=== PATIENT | male | born 1990 | race Caucasian/White ===

== ENCOUNTER 2018-05-28 23:01 | Emergency (ER) | payer SELFPAY ==
[2018-05-28] MEDS ORDERED: THIAMINE 200 MG/2 ML IV ONE (23:14)
[2018-05-28] MEDS ORDERED: Sodium Chloride 0.9% 1000 ML 1,000 ML IV SCH (23:15)
[2018-05-28] MEDS ORDERED: THIAMINE 200 MG/2 ML ONE (23:18)
[2018-05-28] MEDS ORDERED: Sodium Chloride 0.9% 1000 ML 1,000 ML ONE (23:18)
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
[2018-05-28 23:26] LABS: BASOPHIL % 0.2 % (0.0-0.4); Basophil (Absolute #) 0.02 (0-0.4); Eosinophil % 1.4 % (0.00-5.0); Eosinophil (Absolute #) 0.15 (0-0.5); Granulocyte Absolute (ANC) 6.87 (1.4-6.9); Granulocytes % 62.6 % (36.0-66.0); Hemoglobin 13.8 gm/dl (12.5-18.0); Mean Corpuscular Hemoglobin 31.7 pg (26-32); Mean Corpuscular Hgb Concent. 34.5 g/dl (32-36); Mean Platelet Volume 9.8 fl (6-9.5); Monocyte (Absolute #) 0.53 (0.0-1.3); Monocytes % 4.8 % (0.0-12.0); Platelet Count 318 K/mm3 (150-450); Red Blood Count 4.35 M/mm3 (4.1-5.6); Red Cell Distribution Width 12.2 % (11.5-14.0)
[2018-05-28 23:57] LABS: ALBUMIN 4.2 g/dL (3.5-5.0); ALKALINE PHOSPHATASE 79 U/L (38-126); AMYLASE 57 U/L (30-110); ANION GAP 14.8 MEQ/L (5-15); BLOOD UREA NITROGEN 11 mg/dL (9-20); CHLORIDE 104 mmol/L (98-107); Calcium 7.9 mg/dL (8.4-10.2); Carbon Dioxide 28 mmol/L (22-30); Creatinine 1 0.92 mg/dL (0.66-1.25); ETHYL ALCOHOL 278 mg/dL (0-10); Glucose 115 mg/dL (74-106); LIPASE 27 U/L (23-300); Potassium 3.2 mmol/L (3.5-5.1); SGOT/AST 38 U/L (17-59); SGPT/ALT 17 U/L (0-50); SODIUM 143 mmol/L (137-145); Total Protein 6.9 g/dL (6.3-8.2)
[2018-05-29 00:01] LABS: ACETAMINOPHEN < 10 ug/ml (10-30); SALICYLATE < 1.0 mg/dL (2-20)
[2018-05-29 01:42] LABS: Appearance CLEAR (CLEAR); Bilirubin NEGATIVE (NEGATIVE); Blood SMALL Ery/ul (0-5); Glucose NEGATIVE (NEGATIVE); Ketones NEGATIVE (NEGATIVE); Leukocyte Esterase NEGATIVE (NEGATIVE); Nitrite NEGATIVE (NEGATIVE); Protein,Urine Dip NEGATIVE (Negative); Specific Gravity 1.005 (1.005-1.025); Urobilinogen NEGATIVE mg/dL (0-1)
[2018-05-29 01:56] LABS: Amphetamine,Urine NEGATIVE (NEGATIVE); Benzodiazepine,Urine NEGATIVE (NEGATIVE); Cocaine,Urine NEGATIVE (NEGATIVE); Methadone,Urine NEGATIVE (NEGATIVE); Opiate,Urine NEGATIVE (NEGATIVE); PCP,Urine NEGATIVE (NEGATIVE); THC,Urine NEGATIVE (NEGATIVE)
[2018-05-29 01:57] LABS: Barbiturate,Urine NEGATIVE (NEGATIVE)
[2018-05-29] MEDS ORDERED: ROCEPHIN 1 Gm-D5w 50 ml Bag** 0 G/0 ML IVPB IV ONE (02:09)
[2018-05-29 02:20] VITALS: BP 133/82; PULSE 108; O2SAT 99
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
== END 2018-05-29 02:22 | disposition short-term general hospital (02) ==
LOC: ED 23:01
DX: S09.90XA Unspecified injury of head, initial encounter (principal); T79.7XXA Traumatic subcutaneous emphysema, initial encounter; S00.83XA Contusion of other part of head, initial encounter; S02.2XXA Fracture of nasal bones, initial encounter for closed fracture; F10.920 Alcohol use, unspecified with intoxication, uncomplicated; Y04.0XXA Assault by unarmed brawl or fight, initial encounter
CPT/HCPCS: 36000; 36415; 70450; 70486; 71045; 72125; 80053; 80307; 81001; 82150; 83690; 85025; 93041; 96360; 96374; 99285; G0481; J0696; G0480